=== PATIENT | female | born 1990 | race Caucasian/White ===

== ENCOUNTER 2016-09-28 10:15 | Outpatient (CLI) | payer OTHER ==
[~2016-09-28] VITALS: Ht 160 cm; Wt 68.0 kg
[2016-09-28 10:29] VITALS: BP 108/68
[2016-09-28] MEDS ORDERED: INSUHUMDS SC (11:39)
[2016-09-28] MEDS ORDERED: INSUN SC (11:39)
[2016-09-28] MEDS ORDERED: PRENTAB9 PO (11:40)
[2016-09-28] MEDS ORDERED: HumuLIN R (REGULAR) INSULIN (NovoLIN R) **100U/ML** PER UNIT SC ONE (11:45)
[2016-09-28] MEDS ORDERED: SODIUM CHLORIDE 0.9% 1000 ML IV ONE (11:45)
[2016-09-28 12:09] VITALS: BP 114/80
[2016-09-28 12:35] LABS: MEAN CORPUSCULAR HEMOGLOBIN 29.4 pg (27.0-33.0); MEAN CORPUSCULAR HGB CONC 34.3 g/dl (32.0-36.5); MEAN CORPUSCULAR VOLUME 85.8 fl (80.0-96.0); RED CELL DISTRIBUTION WIDTH 12.7 % (11.5-14.5); WHITE BLOOD COUNT 10.4 K/mm3 (4.0-10.0)
[2016-09-28 12:44] LABS: ALBUMIN 2.3 GM/DL (3.2-5.2); ALBUMIN/GLOBULIN RATIO 0.59 (1.00-1.93); ALKALINE PHOSPHATASE 88 U/L (45-117); ALT/SGPT 14 U/L (12-78); ANION GAP 8 MEQ/L (8-16); AST/SGOT 11 U/L (15-37); BILIRUBIN,TOTAL 0.5 MG/DL (0.2-1.0); BLOOD UREA NITROGEN 6 MG/DL (7-18); CALCIUM LEVEL 8.4 MG/DL (8.5-10.1); CARBON DIOXIDE LEVEL 24 MEQ/L (21-32); CHLORIDE LEVEL 100 MEQ/L (98-107); CREATININE FOR GFR 0.64 MG/DL (0.55-1.02); GLOMERULAR FILTRATION RATE > 60.0 (>60); GLUCOSE, FASTING 264 MG/DL (70-105); POTASSIUM SERUM 3.9 MEQ/L (3.5-5.1); SODIUM LEVEL 132 MEQ/L (136-145); TOTAL PROTEIN 6.2 GM/DL (6.4-8.2)
[2016-09-28] MEDS ORDERED: LR 1,000 ML IV SCH (13:00)
[2016-09-28] MEDS ORDERED: ACETAMINOPHEN TAB 650MG DOSE (2X325MG) PO PRN (13:30)
[2016-09-28] MEDS ORDERED: HumuLIN N INSULIN (NovoLIN N) PER UNIT SC ONE (13:30)
[2016-09-28 14:06] VITALS: BP 114/74
[2016-09-28] MEDS ORDERED: NS 1,000 ML IV ONE (14:30)
[2016-09-28 15:57] VITALS: BP 114/60
--- NOTE | 2016-09-28 19:18 | IPNPDOC ---
Text Note Date of Service The patient was seen on 09/28/16 at 1230. NOTE S: Patient is a 25 year old female who is a who is 28.2 weeks gestation with an FRAN of 12/19/16 based off of her 1st trimester ultrasound. She initiated care in [place], [place] with Dr. Wick and her care was transferred to the Center and sees Dr. Ellington. Patient's has been complicated by uncontrolled Type I DM, which was diagnosed when she was 16 years old. Patient has a complex history. She presents to L&D today with complaints of abdominal tightening and cramping every 1 to 2 minutes causing pain that she reports is a 9 out of 10. She reports that she woke up and did not feel good, that she was nauseous. She did not take her morning NPH and she has not eaten anything due to her nausea. She drank a "few sips of apple juice" on her way to the hospital. Reports decreased movement to staff but reports appropriate movement during assessment. Denies leaking fluid or vaginal bleeding. Current medications: Humalog: sliding scale prior to meals; Humulin N 12 units in am and 32 units HS; PNV Allergies: promethazine Medical Hx: DM type 1, uncontrolled, Colitis, Crohn's colitis with last flare in 2014, kidney stones, bicornate uterus Surgical: pilonidal cyst removal 2006, tonsilectomy, adenoidectomy 1999, bilateral myringotomy and tubes 1999 Social: single, FOB involved, hx of depression, non smoker. Denies alcohol or drug abuse. O: FHR: 135, moderate variability, positive accelerations, no decelerations. Contractions every 2-10 minutes. Very irregular and less than 60 seconds. Appearance: She is attentive and cooperative. Abdomen: gravid, soft to palpation. Respiratory: rate regular. No use of accessory muscles. Extremities: no edema present with lower bilateral extremities. Skin: arms, feet, and ankles with sunburn. Skin is bright red. Vital signs: see below. Labs: see below. Urine dip: 2+ ketones, 3+ glucose, pH 6, SG 1.010 A: IUP at 28.3 weeks gestation, Type I DM, Category I FHR tracing P: Dr. Rollins consulted. Start IV. CMP, CBC ordered. Fingerstick every hour. 800 cc bolus of NS. 8 units of regular insulin SC to be given now. NST per protocol and VS per protocol. Will contact [facility]. VS,Jignesh, I+O VS, Jignesh, I+O Laboratory Tests 09/28/16 11:58 Red Blood Count 3.60 L, Mean Corpuscular Volume 85.8, Mean Corpuscular Hemoglobin 29.4, Mean Corpuscular Hemoglobin Concent 34.3, Red Cell Distribution Width 12.7, Calcium Level 8.4 L, Aspartate Amino Transf (AST/SGOT) 11 L, Alanine Aminotransferase (ALT/SGPT) 14, Alkaline Phosphatase 88, Total Bilirubin 0.5, Total Protein 6.2 L, Albumin 2.3 L Vital Signs Date Time Temp Pulse Resp B/P (MAP) Pulse Ox O2 Delivery O2 Flow Rate FiO2 09/28/16 12:09 86 18 114/80 (91) 09/28/16 10:29 96.9 Room Air Item Value Date Time Bedside Glucose (Misc Panel) 244 MG/DL H 09/28/16 1041 Bedside Glucose (Misc Panel) 239 MG/DL H 09/28/16 1308 Item Value Date Time Sodium Level 132 MEQ/L L 09/28/16 1158 Potassium Level 3.9 MEQ/L 09/28/16 1158 Chloride Level 100 MEQ/L 09/28/16 1158 Carbon Dioxide Level 24 MEQ/L 09/28/16 1158 Anion Gap 8 MEQ/L 09/28/16 1158 Blood Urea Nitrogen 6 MG/DL L 09/28/16 1158 Creatinine 0.64 MG/DL 09/28/16 1158 Glomerular Filtration Rate > 60.0 09/28/16 1158 Fasting Glucose 264 MG/DL H 09/28/16 1158 Calcium Level 8.4 MG/DL L 09/28/16 1158 Total Bilirubin 0.5 MG/DL 09/28/16 1158 Aspartate Amino Transf (AST/SGOT) 11 U/L L 09/28/16 1158 Alanine Aminotransferase (ALT/SGPT) 14 U/L 09/28/16 1158 Alkaline Phosphatase 88 U/L 09/28/16 1158 Total Protein 6.2 GM/DL L 09/28/16 1158 Albumin 2.3 GM/DL L 09/28/16 1158 Albumin/Globulin Ratio 0.59 L 09/28/16 1158 HENOK MONDRAGON Sep 28, 2016 14:45
--- NOTE | 2016-09-28 21:45 | IPNPDOC ---
Text Note Date of Service The patient was seen on 09/28/16 1700. NOTE Subjective: Patient reports she does feel better. Reports active movement. Reports occasional abdominal tightening. Denies vaginal bleeding or leaking of fluid. Objective: VS: see below. Fingerstick results: see below. heart tone: 145. Contractions: occasional. Assessment: IUP @ 28.2 wks gestation; DM type II; not in labor Plan: Consult done with Dr. Ellington, her provider at [facility]. He recommended doing all that has been done and giving her another liter bolus of NS. He recommends discharging patient if her blood sugar gets below 200. NPH was ordered for 1300 and she was able to eat lunch. Tolerated food without difficulty. Blood sugars have nichole below 200 for 2 hours. Patient to be discharged home with SO. Saline lock to be removed. Extensive education on taking insulin along with risks associated with not eating appropriately and not taking insulin to self and fetus reviewed with patient. Plan has been reviewed with Dr. Rollins. Encouraged patient to contact provider with any bright red vaginal bleeding, decreased movements (how to do kick counts, when it is necessary, and when to call providers), leaking of fluids, and labor signs and symptoms. Patient verbalized understanding. Reviewed that patient still needs to do her dinner insulin and give herself her evening dose of NPH. VS,Fishbone, I+O VS, Fishbone, I+O Laboratory Tests 09/28/16 11:58 Vital Signs Date Time Temp Pulse Resp B/P (MAP) Pulse Ox O2 Delivery O2 Flow Rate FiO2 09/28/16 15:57 98.4 96 18 114/60 (78) Room Air Item Value Date Time Bedside Glucose (Misc Panel) 205 MG/DL H 09/28/16 1405 Bedside Glucose (Misc Panel) 153 MG/DL H 09/28/16 1559 Bedside Glucose (Misc Panel) 242 MG/DL H 09/28/16 1508 Bedside Glucose (Misc Panel) 192 MG/DL H 09/28/16 1702 HENOK MONDRAGON CNM Sep 28, 2016 19:59
== END 2016-09-28 17:30 | disposition home or self-care (01) ==
LOC: M LDO 10:15
PROVIDERS: ATTEND Advanced Practice Midwife
DX: O47.03 False labor before 37 completed weeks of gestation, third trimester (principal); O24.013 Pre-existing type 1 diabetes mellitus, in pregnancy, third trimester; O34.03 Maternal care for unspecified congenital malformation of uterus, third trimester; Z3A.28 28 weeks gestation of pregnancy; K52.9 Noninfective gastroenteritis and colitis, unspecified; K50.90 Crohn's disease, unspecified, without complications; Z87.442 Personal history of urinary calculi; O99.613 Diseases of the digestive system complicating pregnancy, third trimester

== ENCOUNTER 2018-07-25 11:18 | Emergency (ER) | payer BC, MEDICAID ==
[~2018-07-25] VITALS: Ht 162.6 cm; Wt 61.8 kg
[~2018-07-25 11:18] MED LIST: INSUHUMDS SC; INSUN SC; PRENTAB9 PO
[2018-07-25] MEDS ORDERED: AMOX500T2 PO (11:25)
[2018-07-25] MEDS ORDERED: PRED10PA PO (11:25)
[2018-07-25] MEDS ORDERED: TRES1INJ2 SC (11:25)
[2018-07-25] MEDS ORDERED: NS 1,000 ML IV ONE (12:00)
[2018-07-25 12:22] LABS: VENOUS BASE EXCESS 2.3 (-2.0-2.0); VENOUS O2 SATURATION 95.6 % (60.0-80.0); VENOUS PARTIAL PRESSURE CO2 47.5 mmHg (38.0-50.0); VENOUS PARTIAL PRESSURE O2 81.3 mmHg (30.0-50.0); VENOUS PH 7.388 UNITS (7.330-7.430); VENOUS STANDARD HCO3 26.5 MEQ/L; VENOUS TOTAL CO2 29.4 MEQ/L (24.0-28.0)
[2018-07-25 12:31] LABS: BASO % 0.1 % (0.0-1.0); EOS % 0.1 % (0.0-3.0); HEMATOCRIT 39.5 % (36.0-47.0); HEMOGLOBIN 12.4 g/dl (12.0-15.5); LYMPH % 9.7 % (24.0-44.0); MEAN CORPUSCULAR HEMOGLOBIN 24.4 pg (27.0-33.0); MEAN CORPUSCULAR HGB CONC 31.4 g/dl (32.0-36.5); MEAN CORPUSCULAR VOLUME 77.6 fl (80.0-96.0); MONO # 0.1 10^3/uL (0.0-0.8); MONO % 0.9 % (0.0-5.0); NEUTROPHILS # 8.9 10^3/uL (1.8-7.7); NEUTROPHILS % 88.9 % (36.0-66.0); PLATELET COUNT, AUTOMATED 260 10^3/uL (150-450); RED BLOOD COUNT 5.09 10^6/uL (4.00-5.40); WHITE BLOOD COUNT 10.1 10^3/uL (4.0-10.0)
[2018-07-25 12:52] LABS: HCG, SERUM QUALITATIVE NEGATIVE (NEGATIVE)
[2018-07-25 13:01] LABS: ALBUMIN 3.8 GM/DL (3.2-5.2); ALT/SGPT 22 U/L (12-78); BILIRUBIN,DIRECT < 0.1 MG/DL (0.0-0.2); BILIRUBIN,TOTAL 0.5 MG/DL (0.2-1.0); BLOOD UREA NITROGEN 16 MG/DL (7-18); CALCIUM LEVEL 9.2 MG/DL (8.5-10.1); CARBON DIOXIDE LEVEL 28 MEQ/L (21-32); CHLORIDE LEVEL 100 MEQ/L (98-107); CPK CREATINE PHOSPHOKINASE 369 U/L (26-192); CREATININE FOR GFR 0.92 MG/DL (0.55-1.30); GLOMERULAR FILTRATION RATE > 60.0 (>60); GLUCOSE, FASTING 384 MG/DL (70-100); MAGNESIUM LEVEL 1.8 MG/DL (1.8-2.4); MB/CK RELATIVE INDEX 0.43 (< OR =4); PHOSPHORUS LEVEL 3.6 MG/DL (2.5-4.9); POTASSIUM SERUM 5.1 MEQ/L (3.5-5.1); SODIUM LEVEL 135 MEQ/L (136-145)
[2018-07-25 13:02] LABS: ACETONE/KETONE 7.35 MG/DL (<2.81); LIPASE 71 U/L (73-393); TROPONIN I < 0.02 NG/ML (< 0.10)
[2018-07-25 13:23] LABS: HEMOGLOBIN A1c 10.6 %
[2018-07-25 13:35] LABS: OSMOLALITY SERUM 303 MOSM/KG (275-295)
[2018-07-25] MEDS ORDERED: HumuLIN R (REGULAR) INSULIN (NovoLIN R) **100U/ML** PER UNIT IV ONE (13:45)
[2018-07-25] MEDS ORDERED: ACETAMINOPHEN 500 MG TAB PO ONE (14:15)
[2018-07-25] MEDS ORDERED: ONDANSETRON 4 MG ORAL DISINTEGRATING TAB (Q0162 PER 1MG) PO ONE (14:15)
[2018-07-25] MEDS ORDERED: NS 1,000 ML IV SCH (14:30)
--- NOTE | 2018-07-25 15:07 | REP ---
Pelvic ultrasound transabdominal imaging for right pelvic pain: There are no comparisons. The bladder is adequately distended. The uterus is anteverted and normal size measuring 8.8 x 4.2 x 4.7 cm. The endometrium is not thickened measuring up to 4 mm. Right ovary: The right ovary measures 4.0 x 2.3 x 3.0 cm. And is normal size. There is a 1.2 cm right ovarian follicle. There is right ovarian vascular flow with the Doppler resistive index of the parenchymal arteries measuring 0.54. Left ovary: The left ovary measures 2.2 x 1.9 x 2.8 cm and is normal size. There is no dominant left ovarian mass or cyst. There is vascular flow in the left ovary with the Doppler resistive index of the parenchymal arteries measuring 0.61. No free fluid in the pelvis. Impression: There is a 1.2 cm right ovarian follicle. Otherwise, negative pelvic ultrasound. Electronically Signed by Camden Nelson MD 07/25/2018 02:59 P
[2018-07-25] MEDS ORDERED: ONDA4TAB6 PO (15:23)
[2018-07-25 15:41] VITALS: BP 106/71
== END 2018-07-25 15:43 | disposition home or self-care (01) ==
LOC: M ED 11:18
DX: E10.65 Type 1 diabetes mellitus with hyperglycemia (principal); N83.209 Unspecified ovarian cyst, unspecified side
CPT/HCPCS: 36415; 76856; 80048; 80076; 81001; 82010; 82550; 82553; 82803; 83036; 83605; 83690; 83735; 83930; 84100; 84484; 84703; 85025; 93976; 96372; 99284; Q0162

== ENCOUNTER 2019-10-22 08:33 | Emergency (ER) | payer BC, MEDICAID ==
[~2019-10-22] VITALS: Ht 162.6 cm; Wt 60.5 kg
[~2019-10-22 08:33] MED LIST changes: +AMOX500T2 PO; +ONDA4TAB6 PO; +PRED10PA PO; +TRES1INJ2 SC
[2019-10-22] MEDS ORDERED: MAPA500T2 PO (08:41)
[2019-10-22] MEDS ORDERED: IBUP-1114 PO (08:41)
[2019-10-22 09:44] LABS: BASO # 0.1 10^3/uL (0.0-0.2); BASO % 0.8 % (0.0-1.0); EOS # 0.1 10^3/uL (0.0-0.5); EOS % 1.8 % (0.0-3.0); HEMOGLOBIN 12.7 g/dl (12.0-15.5); LYMPH % 31.6 % (24.0-44.0); MEAN CORPUSCULAR HEMOGLOBIN 27.3 pg (27.0-33.0); MEAN CORPUSCULAR HGB CONC 32.6 g/dl (32.0-36.5); MEAN CORPUSCULAR VOLUME 83.9 fl (80.0-96.0); MONO # 0.4 10^3/uL (0.0-0.8); MONO % 6.5 % (0.0-5.0); NEUTROPHILS # 3.7 10^3/uL (1.5-8.5); NEUTROPHILS % 59.1 % (36.0-66.0); PLATELET COUNT, AUTOMATED 198 10^3/uL (150-450); RED BLOOD COUNT 4.65 10^6/uL (4.00-5.40); WHITE BLOOD COUNT 6.2 10^3/uL (4.0-10.0)
[2019-10-22 10:01] LABS: BLOOD UREA NITROGEN 21 MG/DL (7-18); CALCIUM LEVEL 9.3 MG/DL (8.5-10.1); CARBON DIOXIDE LEVEL 30 MEQ/L (21-32); CHLORIDE LEVEL 102 MEQ/L (98-107); CREATININE FOR GFR 1.09 MG/DL (0.55-1.30); GLOMERULAR FILTRATION RATE > 60.0 (>60); GLUCOSE, FASTING 337 MG/DL (70-100); POTASSIUM SERUM 4.8 MEQ/L (3.5-5.1); SODIUM LEVEL 137 MEQ/L (136-145)
[2019-10-22 10:03] LABS: MONO SCRN NEGATIVE (NEGATIVE)
--- NOTE | 2019-10-22 10:23 | REP ---
CHEST, SINGLE VIEW: There is no evidence of acute infiltrate. No pleural effusion is seen. The heart is normal in size. The mediastinal silhouette is unremarkable. The visualized osseous structures are intact. IMPRESSION: No acute pulmonary disease. Electronically Signed by Camden Hendrix MD 10/23/2019 09:19 A
[2019-10-22] MEDS ORDERED: AZIT-12 PO (10:51)
[2019-10-22] MEDS ORDERED: PROAAER10 INH (10:51)
[2019-10-22 11:04] VITALS: BP 120/84
== END 2019-10-22 11:05 | disposition home or self-care (01) ==
LOC: M ED 08:33
DX: J20.9 Acute bronchitis, unspecified (principal); E11.9 Type 2 diabetes mellitus without complications; Z79.4 Long term (current) use of insulin; Z79.899 Other long term (current) drug therapy; Z88.2 Allergy status to sulfonamides; Z88.1 Allergy status to other antibiotic agents; Z88.8 Allergy status to other drugs, medicaments and biological substances

== ENCOUNTER → 2021-01-05 | Outpatient (REF) | payer BC, MEDICAID ==
[~2021-01-05] MED LIST changes: +AZIT-12 PO; +IBUP-1114 PO; +MAPA500T2 PO; +PROAAER10 INH
== END ==
LOC: M WUC 16:29
PROVIDERS: ATTEND Physician Assistant
DX: J06.9 Acute upper respiratory infection, unspecified (principal); R05 Cough; Z20.828 Contact with and (suspected) exposure to other viral communicable diseases

== ENCOUNTER → 2022-04-18 | Outpatient (REF) | payer BC, MEDICAID ==
[2022-04-18 18:32] LABS: PERCENT SATURATION 18.1 % (13.2-45.0)
[2022-04-18 18:33] LABS: COMPLEMENT C3 98.8 MG/DL (84.0-160.0); COMPLEMENT C4 35.6 MG/DL (12-36)
== END ==
LOC: M LAB REF 17:15
PROVIDERS: ATTEND Internal Medicine Nephrology
DX: R80.9 Proteinuria, unspecified (principal); D50.9 Iron deficiency anemia, unspecified

== ENCOUNTER → 2022-05-19 | Outpatient (CLI) | payer BC, MEDICAID | LOC: M RAD 08:03 | PROVIDERS: ATTEND Internal Medicine Nephrology | DX: N13.39 Other hydronephrosis (principal); R39.198 Other difficulties with micturition | CPT/HCPCS: 78707; A9562 ==

== ENCOUNTER → 2022-05-23 | Outpatient (CLI) | payer BC, MEDICAID ==
[2022-05-23 16:48] LABS: BASO # 0.1 10^3/uL (0.0-0.2); BASO % 0.9 % (0.0-1.0); EOS # 0.5 10^3/uL (0.0-0.5); HEMATOCRIT 33.3 % (36.0-47.0); HEMOGLOBIN 10.7 g/dl (12.0-15.5); LYMPH # 2.6 10^3/uL (1.5-5.0); LYMPH % 34.2 % (24.0-44.0); MEAN CORPUSCULAR HEMOGLOBIN 27.7 pg (27.0-33.0); MEAN CORPUSCULAR HGB CONC 32.1 g/dl (32.0-36.5); MEAN CORPUSCULAR VOLUME 86.3 fl (80.0-96.0); MONO # 0.4 10^3/uL (0.0-0.8); MONO % 5.5 % (2.0-8.0); NEUTROPHILS % 53.1 % (36.0-66.0); PLATELET COUNT, AUTOMATED 233 10^3/uL (150-450); RED BLOOD COUNT 3.86 10^6/uL (4.00-5.40); WHITE BLOOD COUNT 7.5 10^3/uL (4.0-10.0)
== END ==
LOC: M LAB 14:34
PROVIDERS: ATTEND Internal Medicine Hematology
DX: D58.2 Other hemoglobinopathies (principal)

== ENCOUNTER 2022-07-28 09:42 | Outpatient (CLI) | payer BC, MEDICAID ==
[~2022-07-28] VITALS: Ht 162.6 cm; Wt 67.6 kg
[~2022-07-28 09:42] MED LIST changes: +ALBUTEROL SULFATE 2.5MG/0.5ML INH NEB SOLN INH PRN; +EPINEPHrine INJ 1 MG/ML 1ML AMP IM PRN; +diphenhydrAMINE 50MG/ML VIAL IV PRN; +methylPREDNISolone 125MG 2ML VIAL IV PRN
[2022-07-28] MEDS ORDERED: FERRIC CARBOXYMALTOSE INJ 750 MG in NS 250 ML (>50kg) IV ONE ×3 (10:00)
[2022-07-28] MEDS ORDERED: NS 1,000 ML IV SCH (10:00)
[2022-07-28 10:06] VITALS: BP 131/70
[2022-07-28 11:15] VITALS: BP 122/68
== END 2022-07-28 11:20 | disposition home or self-care (01) ==
LOC: M INFU 09:42
PROVIDERS: ATTEND Internal Medicine Hematology
DX: D50.9 Iron deficiency anemia, unspecified (principal); Z88.2 Allergy status to sulfonamides; Z88.1 Allergy status to other antibiotic agents
CPT/HCPCS: 96365; J1439

== ENCOUNTER → 2022-10-25 | Outpatient (REF) | payer BC, MEDICAID, OTHER ==
[~2022-10-25] MED LIST changes: -ALBUTEROL SULFATE 2.5MG/0.5ML INH NEB SOLN INH PRN; -EPINEPHrine INJ 1 MG/ML 1ML AMP IM PRN; -diphenhydrAMINE 50MG/ML VIAL IV PRN; -methylPREDNISolone 125MG 2ML VIAL IV PRN
== END ==
LOC: M LAB REF 17:24
PROVIDERS: ATTEND Internal Medicine Nephrology
DX: N39.0 Urinary tract infection, site not specified (principal)

== ENCOUNTER 2022-11-06 16:00 | Outpatient (CLI) | payer OTHER, BC ==
[~2022-11-06] VITALS: Ht 162.6 cm; Wt 63.2 kg
[2022-11-06 16:00] VITALS: BP 136/75; O2SAT 98
[2022-11-06] MEDS ORDERED: D5W IV ONE (16:30)
[2022-11-06] MEDS ORDERED: CEFTAZIDIME IV ONE (16:30)
[2022-11-06 16:35] VITALS: BP 114/62; O2SAT 99
== END 2022-11-06 16:45 ==
LOC: M INFU 16:00
PROVIDERS: ATTEND Internal Medicine Nephrology
DX: N39.0 Urinary tract infection, site not specified (principal); Z88.2 Allergy status to sulfonamides; Z88.1 Allergy status to other antibiotic agents; Z88.8 Allergy status to other drugs, medicaments and biological substances
CPT/HCPCS: 96365; J0713

== ENCOUNTER 2022-11-07 15:45 | Outpatient (CLI) | payer OTHER, BC, MEDICAID ==
[~2022-11-07] VITALS: Ht 162.6 cm; Wt 63.2 kg
[2022-11-07] MEDS ORDERED: D5W IV ONE (16:00)
[2022-11-07] MEDS ORDERED: CEFTAZIDIME IV ONE (16:00)
[2022-11-07 16:01] VITALS: BP 126/77; O2SAT 97
[2022-11-07 16:29] VITALS: BP 121/70; O2SAT 98
== END 2022-11-07 16:30 | disposition home or self-care (01) ==
LOC: M INFU 15:45
PROVIDERS: ATTEND Internal Medicine Nephrology
DX: N39.0 Urinary tract infection, site not specified (principal); Z88.1 Allergy status to other antibiotic agents; Z88.2 Allergy status to sulfonamides; Z88.8 Allergy status to other drugs, medicaments and biological substances
CPT/HCPCS: 96365; J0713

== ENCOUNTER 2022-11-08 15:50 | Outpatient (CLI) | payer OTHER, BC, MEDICAID ==
[~2022-11-08] VITALS: Ht 162.6 cm; Wt 63.6 kg
[2022-11-08 15:50] VITALS: BP 126/74; O2SAT 97
[2022-11-08] MEDS ORDERED: D5W IV ONE (16:00)
[2022-11-08] MEDS ORDERED: CEFTAZIDIME IV ONE (16:00)
[2022-11-08 16:30] VITALS: BP 122/70; O2SAT 99
== END 2022-11-08 16:30 ==
LOC: M INFU 15:50
PROVIDERS: ATTEND Internal Medicine Nephrology
DX: N39.0 Urinary tract infection, site not specified (principal); Z88.2 Allergy status to sulfonamides; Z88.8 Allergy status to other drugs, medicaments and biological substances
CPT/HCPCS: 96365; J0713

== ENCOUNTER 2022-11-09 15:50 | Outpatient (CLI) | payer OTHER, BC, MEDICAID ==
[~2022-11-09] VITALS: Ht 162.6 cm; Wt 63.0 kg
[2022-11-09 15:55] VITALS: BP 146/85; O2SAT 99
[2022-11-09] MEDS ORDERED: CEFTAZIDIME IV ONE (16:00)
[2022-11-09] MEDS ORDERED: D5W IV ONE (16:00)
[2022-11-09 16:55] VITALS: BP 145/84; O2SAT 100
== END 2022-11-09 17:00 ==
LOC: M INFU 15:50
PROVIDERS: ATTEND Internal Medicine Nephrology
DX: N39.0 Urinary tract infection, site not specified (principal); Z88.2 Allergy status to sulfonamides; Z88.1 Allergy status to other antibiotic agents; Z88.8 Allergy status to other drugs, medicaments and biological substances
CPT/HCPCS: 96365; J0713

== ENCOUNTER 2022-11-10 15:00 | Outpatient (CLI) | payer OTHER, BC, MEDICAID ==
[~2022-11-10] VITALS: Ht 162.6 cm; Wt 63.2 kg
[2022-11-10] MEDS ORDERED: D5W IV ONE (15:30)
[2022-11-10] MEDS ORDERED: CEFTAZIDIME IV ONE (15:30)
[2022-11-10 15:31] VITALS: BP 124/65; O2SAT 97
[2022-11-10 16:00] VITALS: BP 124/65; O2SAT 97
== END 2022-11-10 16:00 | disposition home or self-care (01) ==
LOC: M INFU 15:00
PROVIDERS: ATTEND Internal Medicine Nephrology
DX: N39.0 Urinary tract infection, site not specified (principal); Z88.1 Allergy status to other antibiotic agents; Z88.2 Allergy status to sulfonamides; Z88.8 Allergy status to other drugs, medicaments and biological substances
CPT/HCPCS: 96365; J0713